=== PATIENT | female | born 1985 | race Caucasian/White ===

== ENCOUNTER 2022-03-23 13:45 | Inpatient (IN) | payer OTHER ==
[~2022-03-23] VITALS: Ht 167.6 cm; Wt 89.4 kg
[2022-03-31] MEDS ORDERED: IRON236 MG (07:22)
[2022-03-31] MEDS ORDERED: PRENATAL TABLE1 EAC1 (07:22)
== END 2022-04-02 14:19 | disposition home or self-care (01) | DRG 807 ==
LOC: OB/GYN 03-31 06:40 → LDR 03-31 06:40 → OB/GYN 03-31 13:12 → LDR 04-05 13:45
PROVIDERS: ADMIT Obstetrics & Gynecology; ATTEND Obstetrics & Gynecology
PROC: 10E0XZZ Delivery of Products of Conception, External Approach (ICD-10-PCS; principal; 2022-03-31)
PROC: 0KQM0ZZ Repair Perineum Muscle, Open Approach (ICD-10-PCS; 2022-03-31)
PROC: 4A1HXCZ Monitoring of Products of Conception, Cardiac Rate, External Approach (ICD-10-PCS; 2022-03-31)
DX: O70.1 Second degree perineal laceration during delivery (principal); Z37.0 Single live birth; Z3A.40 40 weeks gestation of pregnancy; Z20.822 Contact with and (suspected) exposure to COVID-19